=== PATIENT | female | born 1955 | race Hispanic/Latino ===

== ENCOUNTER 2022-02-27 23:23 | Emergency (ER) | payer MEDICARE ==
[2022-02-28 00:42] VITALS: BP 121/75
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
== END 2022-02-28 09:54 | disposition home or self-care (01) ==
LOC: ED 23:23
DX: Z00.8 Encounter for other general examination (principal); Z59.01 Sheltered homelessness
CPT/HCPCS: 99283